=== PATIENT | female | born 1970 | race Caucasian/White ===

== ENCOUNTER 2024-03-05 08:36 | Outpatient (AMB) | payer BC, SELFPAY ==
[2024-03-05 08:41] VITALS: BP 98/52; PULSE 71; RESP 12; O2SAT 95; BMI 28.4
--- NOTE | 2024-03-05 08:41 | A.OFFPC_ITS ---
Vital Signs 03/05/24 08:41 Height 4 ft 10.75 in Weight 139 lb 6 oz BMI 28.4 BP 98/52 L Blood Pressure Location Lt brachial Position Sitting Respiration 12 Pulse 71 Pulse Source Pulse Oximeter Pulse Oximetry (%) 95 Oxygen Delivery Method Room Air Intake Visit Reasons: [facility] Intake Note: Patient is here to transfer care from [facility] to [facility]. Patient reports not be able to sleep through the night, bedtime is between 10 and 12 midnight and waking between 2am-4am, or multiple times throughout the night. Patient reports she has tried melatonin and magnesium and neither have been effective. Patient also notices appetite concern- she is not hungry until 1pm. Investigation Manager Required: No Accompanied by: Self / Same As Patient Allergies No Known Allergies Allergy (Verified 03/05/24 08:48) Tobacco use date assessed: 03/05/24 Dental Screening Dental Screen Date: 03/05/24 Did you have a dental visit in the last 12 months?: Yes Did you have a dental problem in the last 6 months where you did not have access to dental care?: No Was dental information given to patient?: Patient has dentist HPI HPI Comments History of Present Illness Details The patient is a 53-year-old female with a past medical history of hyperlipidemia, migraines, allergic rhinitis presenting for follow-up CV: Hyperlipidemia. She has tried every diet to lose weight and has not been effective. Lifestlye changes, phentermine were ineffective in the past Migraine: headaches are stable. on estrogen, progesterone, testosterone hormone therapy through integrative medicine. At her last visit she reported that even if she eats a small spinal sweets like a cake or cookie note 20 minutes later she breaks out in excessive sweating. It is not accompanied by chest pain, abdominal pain, palpitations. She reported that has been happening for previous year. We discussed postprandial distress syndrome She has a history of nonobstructive bilateral nephrolithiasis. This was performed in 02/27/2024. She follows with [facility] Preventive Colonoscopy 04/20/2021: 2 tubular adenomas Pap 2019 Mammo 07/04/2023 ROS CONSTITUTIONAL: Denies weight loss, fever and chills. HEENT: Denies changes in vision and hearing. RESPIRATORY: Denies SOB and cough. CV: Denies palpitations and CP GI: Denies abdominal pain, nausea, vomiting and diarrhea. : Denies dysuria and urinary frequency. MSK: Denies new myalgia and joint pain. SKIN: Denies rash and pruritus. NEUROLOGICAL: Denies headache PSYCHIATRIC: Denies recent changes in mood. PHYSICAL EXAM: GENERAL: Alert and oriented x 3. NAD EYES: EOMI. Anicteric. HENT: Moist mucous membranes. No scleral icterus. No cervical lymphadenopathy. LUNGS: Clear to auscultation bilaterally. CARDIOVASCULAR: Regular rate and rhythm. No murmur. No JVD. ABDOMEN: Soft, non-tender +bs EXTREMITIES: No edema. Non-tender. SKIN: No rashes or lesions. Warm. NEUROLOGIC: No focal neurological deficits. CN II-XII grossly intact PSYCHIATRIC: Cooperative. Appropriate mood and affect [facility] Medical History (Updated 03/05/24 @ 09:18 by Shayy Washburn MD) Vitamin D deficiency Tubular adenoma of colon Migraine Microscopic hematuria Kidney stone Hypercholesterolemia Hearing loss Allergic rhinitis Surgical History (Updated 03/05/24 @ 08:37 by Micheline Cardozo CMA) History of cholecystectomy Family History (Updated 03/05/24 @ 08:55 by Micheline Cardozo CMA) Mother Hypercholesterolemia Father Bladder cancer Social History (Updated 03/05/24 @ 08:56 by Micheline Cardozo CMA) Household Members: Spouse and Children Housing: House Are you a primary landcare facilitator to a significant other at home: No Do you presently have visiting nurse or other home services: No 75 years or older and lives alone: No Alcohol intake: current Alcohol intake frequency: a few times a week Patient Tobacco Use Status: Never used Tobacco e-Cigarette/Vaping Use: Never Used service: No Current occupational status: employed 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 Cognitive needs: No Hearing needs: No Vision needs: No Questionnaire PHQ-9 Over the last 2 weeks, how often have you been bothered by any of the following problems? 1. Little interest or pleasure in doing things: not at all 2. Feeling down, depressed, or hopeless: not at all 3. Trouble falling or staying asleep, or sleeping too much: several days 4. Feeling tired or having little energy: several days 5. Poor appetite or overeating: several days 6. Feeling bad about yourself - or that you are a failure or have let yourself or your family down: not at all 7. Trouble concentrating on things, such as reading the newspaper or watching television: not at all 8. Moving or speaking so slowly that other people could have noticed. Or the opposite - being so fidgety or restless that you have been moving around a lot more than usual: not at all 9. Thoughts that you would be better off or of hurting yourself in some way: not at all Total score: 3 Depression Screening Interpretation: Negative (neg) Depression Screening Done: Yes 60314 - PHQ-9 Billing: Yes Source: Developed by Drs. Elie Soto, Disha De Leon, John Lorenzo and colleagues, with an educational mildred from [employer]. Thrive Questionnaire Date Thrive assessed: 03/05/24 I am a: Patient What is your living situation today?: I have a steady place to live Within the past 12 months, did the food you bought not last and you didn't have the money to get more?: Never true Within the past 12 months, did you worry whether your food would run out before you got money to buy more?: Never true Do you have trouble paying for medicines?: No Do you have trouble getting transportation to medical appointments?: No Do you have trouble paying your heating and electricity bill?: No Do you have trouble taking care of your child, family member or friend?: No Do you have trouble with day-to-day activities such as bathing, preparing meals, shopping, managing finances, etc.?: No Are you currently unemployed and looking for a job?: No Are you interested in more education?: No Please select the resources that you would like help with: None Currently or been in a relationship where the following occur: No concerns reported THRIVE Score: 0 AUDIT C Alcohol Use Questionnaire (AUDIT-C) 1. How often do you have a drink containing alcohol?: 2-4 times a month 2. How many drinks containing alcohol do you have on a typical day when you are drinking?: 1 or 2 3. How often do you have six or more drinks on one occasion?: Never Total Score: 2 PARISA-7 AMB Questionnaire PARISA-7 Date PARISA - 7 assessed: 03/05/24 Feeling nervous, anxious, or on edge: 0 = Not at all Not being able to stop or control worryin = Not at all Worrying too much about different things: 0 = Not at all Trouble relaxin = Not at all Being so restless that it is hard to sit still: 0 = Not at all Becoming easily annoyed or irritable: 0 = Not at all Feeling afraid as if something awful might happen: 0 = Not at all Total PARISA-7 score (0-4 normal; 5-9 mild; 10-14 moderate; 15-21 severe): 0 Source: Developed by Drs. Elie Soto, Disha De Leon, John Lorenzo and colleagues, with an educational mildred from [employer]. PARISA-7 Assessment Billing PARISA-7 Assessment Tool: PARISA-7 Assessment 25835 Physical exam (Primary Care) Vital Signs: Last Vital Signs Pulse 71 03/05/24 08:41 Resp 12 03/05/24 08:41 BP 98/52 L 03/05/24 08:41 Pulse Ox 95 03/05/24 08:41 Oxygen Delivery Method Room Air 03/05/24 08:41 BMI result Body Mass Index 28.4 Tobacco/Smoking Status: Tobacco use Status Tobacco use date assessed 03/05/24 03/05/24 08:53 Patient Tobacco Use Status Never used Tobacco 03/05/24 08:56 e-Cigarette/Vaping Use Never Used 03/05/24 08:56 PHQ-9: PHQ-9 Score PHQ-9: Total score 3 03/05/24 09:10 Depression Screening Interpretation: Negative (neg) Thrive Assessment: Date of Thrive Assessment Date Thrive assessed 03/05/24 03/05/24 08:53 Currently or been in a relationship where the following occur: No concerns reported Assessment and Plan Assessment & Plan (1) Migraine: Code(s): G43.909 - Migraine, unspecified, not intractable, without status migrainosus Qualifiers: Intractability: not intractable Migraine type: unspecified Status migrainosus presence: without status migrainosus Qualified Code(s): G43.909 - Migraine, unspecified, not intractable, without status migrainosus Plan: stable on imitrex (2) Vitamin D deficiency: Code(s): E55.9 - Vitamin D deficiency, unspecified Plan: has been intermittently been taking her supplement (3) Weight gain: Code(s): R63.5 - Abnormal weight gain Plan: wegovy ordered. Orders: Orders Comprehensive Met. Panel Today E55.9 - Vitamin D deficiency, unspecified, E78.00 - Pure hypercholesterolemia, unspecified, G43.909 - Migraine, unspecified, not intractable, without status migrainosus Lipid Panel Today E55.9 - Vitamin D deficiency, unspecified, E78.00 - Pure h ypercholesterolemia, unspecified, G43.909 - Migraine, unspecified, not intractable, without status migrainosus Vitamin D 25-OH (D2 and D3) Today E55.9 - Vitamin D deficiency, unspecified, E78.00 - Pure hypercholesterolemia, unspecified, G43.909 - Migraine, unspecified, not intractable, without status migrainosus TSH reflex Free T4 Today E55.9 - Vitamin D deficiency, unspecified, E78.00 - Pure hypercholesterolemia, unspecified, G43.909 - Migraine, unspecified, not intractable, without status migrainosus Thyroid Peroxidase Antibodies Today E55.9 - Vitamin D deficiency, unspecified, E78.00 - Pure hypercholesterolemia, unspecified, G43.909 - Migraine, unspecified, not intractable, without status migrainosus Complete Blood Count Auto Diff Today E55.9 - Vitamin D deficiency, unspecified, E78.00 - Pure hypercholesterolemia, unspecified, G43.909 - Migraine, unspecified, not intractable, without status migrainosus Medications: New cholecalciferol (vitamin D3) 50 mcg PO DAILY 90 caps 2RF Wegovy (semaglutide (weight loss)) administer weeks 1 through 4 of therapy 0.25 mg (0.5 mL) subcut QWEEK 2 mL 3RF NS E55.9 - Vitamin D deficiency, unspecified, E78.00 - Pure hypercholesterolemia, unspecified, G43.909 - Migraine, unspecified, not intractable, without status migrainosus sumatriptan succinate do not exceed 8 doses per 24 hrs 25 mg PO Q2-4H PRN 90 tabs 2RF migraine headache trazodone 50 - 100 mg (1 - 2 x 50 mg) PO BEDTIME PRN 60 tabs 3RF sleep Coding Level of Care Code Est Pt Level 5 (48592) Diagnoses Migraine without status migrainosus, not intractable, unspecified migraine type G43.909 Intractability: not intractable Migraine type: unspecified Status migrainosus presence: without status migrainosus Vitamin D deficiency E55.9 Weight gain R63.5 Additional Codes PARISA-7 Assessment Billing - PARISA-7 Assessment Tool: APRISA-7 Assessment [id number] ([id number]) Time Spent (min) 42
== END 2024-03-05 09:18 | disposition home or self-care (01) ==
PROVIDERS: Visit Provider Internal Medicine
DX: G43.909 Migraine, unspecified, not intractable, without status migrainosus (principal); E55.9 Vitamin D deficiency, unspecified; R63.5 Abnormal weight gain

== ENCOUNTER → 2024-03-05 08:36 | Outpatient (BNVA) | payer BC, SELFPAY | PROVIDERS: Visit Provider Internal Medicine | DX: G43.909 Migraine, unspecified, not intractable, without status migrainosus (principal); E55.9 Vitamin D deficiency, unspecified; R63.5 Abnormal weight gain | CPT/HCPCS: 96127 ==

== ENCOUNTER 2024-03-05 09:35 | Outpatient (REF) | payer BC, SELFPAY ==
[2024-03-05 11:11] LABS: MANUAL DIFF FLAG NO
[2024-03-05 11:16] LABS: Basophils Percent Auto 0.7 % (0-2); Eosinophils Absolute Auto 0.2 X10*3/uL (0.0-0.4); Eosinophils Percent Auto 2.8 % (0-4); Hematocrit 43.8 % (37.0-47.0); Hemoglobin 14.7 g/dl (12.0-16.0); Imm Gran Abs Auto 0.03 X10*3/uL (0.00-0.03); Imm Gran Pct Auto 0.5 % (0.0-0.4); Lymphocytes Absolute Auto 1.9 X10*3/uL (1.2-4.9); Lymphocytes Percent Auto 34.2 % (20-40); Mean Corpuscular HGB Conc 33.6 g/dl (31.0-35.0); Mean Corpuscular Hemoglobin 31.1 pg (27.0-33.0); Mean Corpuscular Volume 92.8 fL (80.0-98.0); Monocytes Absolute Auto 0.4 X10*3/uL (0.1-1.2); Monocytes Percent Auto 7.4 % (2-11); Neutrophils Absolute Auto 3.1 x10*3/uL (2.0-8.3); Neutrophils Percent Auto 54.4 % (45-73); Platelet Count 357 X10*3/uL (160-400); Red Blood Count 4.72 X10*6/uL (4.20-5.50); Red Cell Distribution Width 13.1 % (11.0-16.0); White Blood Count 5.6 X10*3/uL (4.8-10.8)
[2024-03-05 12:01] LABS: Alanine Aminotransferase 46 U/L (0-31); Albumin Level 4.3 g/dL (3.5-5.0); Alkaline Phosphatase 125 U/L (39-117); Anion Gap 10 (12-20); Aspartate Amino Transferase 22 U/L (5-31); Bilirubin Total 0.4 mg/dL (0.0-1.0); Blood Urea Nitrogen 22 mg/dL (9-16); Calcium 9.9 mg/dL (8.4-10.2); Carbon Dioxide 29 mmol/L (22-29); Chloride 107 mmol/L (96-108); Cholesterol 269 mg/dL (<200); Estimated Glomerular Filt Rate > 60; Glucose Random 99 mg/dL (60-115); HDL Cholesterol 70 mg/dL (>40); LDL Cholesterol Calculated 189 mg/dL (<100); Potassium 4.4 mmol/L (3.3-5.1); Sodium 142 mmol/L (135-145); Total Protein 7.5 g/dL (6.5-8.0); Triglycerides 54 mg/dL (<150)
[2024-03-05 12:07] LABS: TSH reflex Free T4 1.26 uIU/mL (0.32-4.0)
[2024-03-09 09:44] LABS: Thyroid Peroxidase Antibodies <1 IU/mL (<9)
[2024-03-10 13:44] LABS: Vitamin D 25-OH, D2 <4 ng/mL; Vitamin D 25-OH, D3 37 ng/mL; Vitamin D 25-OH, Total 37 ng/mL (30-100)
== END 2024-03-05 09:36 | disposition home or self-care (01) ==
LOC: HO.WFDLDS 09:35
PROVIDERS: Visit Provider Internal Medicine
DX: E55.9 Vitamin D deficiency, unspecified (principal); E78.00 Pure hypercholesterolemia, unspecified; G43.909 Migraine, unspecified, not intractable, without status migrainosus
CPT/HCPCS: 36415; 80053; 80061; 82306; 84443; 85025; 86376

== ENCOUNTER 2024-03-30 13:51 | Outpatient (AMB) | payer BC, SELFPAY ==
--- NOTE | 2024-03-30 13:53 | A.OFFVIS_ITS ---
Intake Visit Reasons: Abdominal pain Allergies No Known Allergies Allergy (Verified 03/05/24 08:48) PFSH Medical History (Updated 03/05/24 @ 09:18 by Shayy Washburn MD) Vitamin D deficiency Tubular adenoma of colon Migraine Microscopic hematuria Kidney stone Hypercholesterolemia Hearing loss Allergic rhinitis Surgical History (Updated 03/05/24 @ 08:37 by Micheline Cardozo CMA) History of cholecystectomy Family History (Updated 03/05/24 @ 08:55 by Micheline Cardozo CMA) Mother Hypercholesterolemia Father Bladder cancer Social History (Updated 03/05/24 @ 08:56 by Micheline Cardozo CMA) Household Members: Spouse and Children Housing: House Are you a primary infant caregiver to a significant other at home: No Do you presently have visiting nurse or other home services: No 75 years or older and lives alone: No Alcohol intake: current Alcohol intake frequency: a few times a week Patient Tobacco Use Status: Never used Tobacco e-Cigarette/Vaping Use: Never Used service: No Current occupational status: employed 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 Cognitive needs: No Hearing needs: No Vision needs: No Coding
--- NOTE | 2024-03-30 13:56 | MHC.PC.OV ---
Vital Signs 03/30/24 13:58 Height 4 ft 10 in Weight 141 lb 2 oz BMI 29.5 BP 112/74 Blood Pressure Location Rt brachial Position Sitting Pulse 78 Pulse Source Pulse Oximeter Temp 98.1 F Temp Source Oral Pulse Oximetry (%) 99 Oxygen Delivery Method Room Air Intake Visit Reasons: Abdominal pain Intake Note: Abdominal pain for about a week. Has hx of kidney stones, but the pain feels different. Allergies No Known Allergies Allergy (Verified 03/05/24 08:48) Tobacco use date assessed: 03/05/24 Dental Screening Dental Screen Date: 03/05/24 HPI HPI Comments History of Present Illness Details The patient is a 53-year-old female with a past medical history of hyperlipidemia, migraines, allergic rhinitis presenting for acute abdominal pain Patient reports that for the past week she has had generalized abdominal pain, worst in the upper mid RLQ. She has had considerable pain, bloating, loose stools and intermittent pebbly stools. She originally thought it could be a kidney stone but symptoms are different and more severe. Denies fevers. Denies vomiting. Denies blood in the stools. No visible blood in the urine. Microscopic blood on dip but chronic CV: Hyperlipidemia. She has tried every diet to lose weight and has not been effective. Lifestlye changes, phentermine were ineffective in the past Migraine: headaches are stable. on estrogen, progesterone, testosterone hormone therapy through integrative medicine. At her last visit she reported that even if she eats a small spinal sweets like a cake or cookie note 20 minutes later she breaks out in excessive sweating. It is not accompanied by chest pain, abdominal pain, palpitations. She reported that has been happening for previous year. We discussed postprandial distress syndrome She has a history of nonobstructive bilateral nephrolithiasis. This was performed in 02/27/2024. She follows with [facility]rology Preventive Colonoscopy 04/20/2021: 2 tubular adenomas Pap 2019 Mammo 07/04/2023 ROS CONSTITUTIONAL: Denies weight loss, fever and chills. HEENT: Denies changes in vision and hearing. RESPIRATORY: Denies SOB and cough. CV: Denies palpitations and CP GI: Denies abdominal pain, nausea, vomiting and diarrhea. : Denies dysuria and urinary frequency. MSK: Denies new myalgia and joint pain. SKIN: Denies rash and pruritus. NEUROLOGICAL: Denies headache PSYCHIATRIC: Denies recent changes in mood. PHYSICAL EXAM: GENERAL: Alert and oriented x 3. Visibly uncomfortable EYES: EOMI. Anicteric. HENT: Moist mucous membranes. No scleral icterus. No cervical lymphadenopathy. LUNGS: Clear to auscultation bilaterally. CARDIOVASCULAR: Regular rate and rhythm. No murmur. No JVD. ABDOMEN: Distended, tender to palpation especially upper mid RLQ. No rebound or rigidity. +bs EXTREMITIES: No edema. Non-tender. SKIN: No rashes or lesions. Warm. NEUROLOGIC: No focal neurological deficits. CN II-XII grossly intact PSYCHIATRIC: Cooperative. Appropriate mood and affect [facility] Medical History (Updated 03/31/24 @ 15:22 by Shayy Washburn MD) Vitamin D deficiency Tubular adenoma of colon Migraine Microscopic hematuria Kidney stone Hypercholesterolemia Hearing loss Allergic rhinitis Surgical History (Updated 03/05/24 @ 08:37 by Micheline Cardozo CMA) History of cholecystectomy Family History (Updated 03/05/24 @ 08:55 by Micheline Cardozo CMA) Mother Hypercholesterolemia Father Bladder cancer Social History (Updated 03/05/24 @ 08:56 by Micheline Cardozo CMA) Household Members: Spouse and Children Housing: House Are you a primary infant childcare provider to a significant other at home: No Do you presently have visiting nurse or other home services: No Alcohol intake: current Alcohol intake frequency: a few times a week Patient Tobacco Use Status: Never used Tobacco e-Cigarette/Vaping Use: Never Used service: No Current occupational status: employed 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 Cognitive needs: No Hearing needs: No Vision needs: No Questionnaire Thrive Questionnaire Date Thrive assessed: 03/05/24 I am a: Patient What is your living situation today?: I have a steady place to live Within the past 12 months, did the food you bought not last and you didn't have the money to get more?: Never true Within the past 12 months, did you worry whether your food would run out before you got money to buy more?: Never true Do you have trouble paying for medicines?: No Do you have trouble getting transportation to medical appointments?: No Do you have trouble paying your heating and electricity bill?: No Do you have trouble taking care of your child, family member or friend?: No Do you have trouble with day-to-day activities such as bathing, preparing meals, shopping, managing finances, etc.?: No Are you currently unemployed and looking for a job?: No Are you interested in more education?: No Please select the resources that you would like help with: None Currently or been in a relationship where the following occur: No concerns reported THRIVE Score: 0 PARISA-7 AMB Questionnaire PARISA-7 Date PRAISA - 7 assessed: 03/05/24 Becoming easily annoyed or irritable: 0 = Not at all Source: Developed by Drs. Elie Soto, Disha De Leon, John Lorenzo and colleagues, with an educational mildred from [employer]. Physical exam (Primary Care) Vital Signs: Last Vital Signs Temp 98.1 F 03/30/24 13:58 Pulse 78 03/30/24 13:58 BP 112/74 03/30/24 13:58 Pulse Ox 99 03/30/24 13:58 Oxygen Delivery Method Room Air 03/30/24 13:58 BMI result Body Mass Index 29.5 Tobacco/Smoking Status: Tobacco use Status Tobacco use date assessed 03/05/24 03/30/24 14:01 Patient Tobacco Use Status Never used Tobacco 03/30/24 14:01 e-Cigarette/Vaping Use Never Used 03/30/24 14:01 Thrive Assessment: Date of Thrive Assessment Date Thrive assessed 03/05/24 03/30/24 14:01 Currently or been in a relationship where the following occur: No concerns reported Coding Level of Care Code Est Pt Level 4 (84868) Complex EM visit Add On G2211 Diagnoses Right lower quadrant pain R10.31 History of nephrolithiasis Z87.442 Abdominal pain, unspecified abdominal location R10.9 Abdominal location: unspecified location Assessment & Plan Assessment & Plan (1) Right lower quadrant pain: Code(s): R10.31 - Right lower quadrant pain Category: Medical Plan: Discussed differential including but not limited to appendicitis, gastroenteritis etc. Abdominal u/s urgent ordered. CT ordered. Hold off medications. Labs ordered. If pain persists/worsens and imaging is delayed she will go to the ER for evaluation (2) History of nephrolithiasis: Code(s): Z87.442 - Personal history of urinary calculi Category: Medical Plan: see above (3) Abdominal pain: Code(s): R10.9 - Unspecified abdominal pain Category: Medical Qualifiers: Abdominal location: unspecified location Qualified Code(s): R10.9 - Unspecified abdominal pain Plan: RLQ, periumbilical and generalized Orders: Orders US abdomen complete 03/30/24 R10.9 - Unspecified abdominal pain, Z87.442 - Personal history of urinary calculi Amylase 03/30/24 R10.9 - Unspecified abdominal pain, Z87.442 - Personal history of urinary calculi Comprehensive Met. Panel 03/30/24 R10.31 - Right lower quadrant pain, R10.9 - Unspecified abdominal pain, Z87.442 - Personal history of urinary calculi Complete Blood Count Auto Diff 03/30/24 R10.9 - Unspecified abdominal pain, Z87.442 - Personal history of urinary calculi Erythrocyte Sedimentation Rate 03/30/24 R10.9 - Unspecified abdominal pain, Z87.442 - Personal history of urinary calculi CT abdomen pelvis wo/w IV con 03/30/24 R10.9 - Unspecified abdominal pain, Z87.442 - Personal history of urinary calculi
[2024-03-30 13:58] VITALS: BP 112/74; PULSE 78; TEMP 36.7; O2SAT 99; BMI 29.5
== END 2024-03-30 14:55 | disposition home or self-care (01) ==
PROVIDERS: Visit Provider Internal Medicine
DX: R10.31 Right lower quadrant pain (principal); Z87.442 Personal history of urinary calculi; R10.9 Unspecified abdominal pain

== ENCOUNTER → 2024-03-30 13:51 | Outpatient (BNVA) | payer BC, SELFPAY | PROVIDERS: Visit Provider Internal Medicine ==

== ENCOUNTER 2024-03-30 14:49 | Outpatient (REF) | payer BC, SELFPAY ==
[2024-03-30 17:44] LABS: MANUAL DIFF FLAG NO
[2024-03-30 17:59] LABS: Basophils Absolute Auto 0.1 X10*3/uL (0.0-0.2); Basophils Percent Auto 0.9 % (0-2); Eosinophils Absolute Auto 0.1 X10*3/uL (0.0-0.4); Eosinophils Percent Auto 1.2 % (0-4); Hematocrit 42.4 % (37.0-47.0); Hemoglobin 14.2 g/dl (12.0-16.0); Imm Gran Abs Auto 0.02 X10*3/uL (0.00-0.03); Imm Gran Pct Auto 0.3 % (0.0-0.4); Lymphocytes Absolute Auto 1.6 X10*3/uL (1.2-4.9); Lymphocytes Percent Auto 20.6 % (20-40); Mean Corpuscular HGB Conc 33.5 g/dl (31.0-35.0); Mean Corpuscular Hemoglobin 31.1 pg (27.0-33.0); Mean Corpuscular Volume 92.8 fL (80.0-98.0); Mean Platelet Volume 10.4 fL (9.4-12.3); Monocytes Absolute Auto 0.5 X10*3/uL (0.1-1.2); Monocytes Percent Auto 6.1 % (2-11); Neutrophils Absolute Auto 5.6 x10*3/uL (2.0-8.3); Neutrophils Percent Auto 70.9 % (45-73); Platelet Count 320 X10*3/uL (160-400); Red Blood Count 4.57 X10*6/uL (4.20-5.50); Red Cell Distribution Width 13.5 % (11.0-16.0); White Blood Count 7.8 X10*3/uL (4.8-10.8)
[2024-03-30 18:25] LABS: Alanine Aminotransferase 39 U/L (0-31); Albumin Level 4.4 g/dL (3.5-5.0); Alkaline Phosphatase 88 U/L (39-117); Amylase 50 U/L (28-100); Anion Gap 10 (12-20); Aspartate Amino Transferase 28 U/L (5-31); Bilirubin Total 0.4 mg/dL (0.0-1.0); Blood Urea Nitrogen 17 mg/dL (9-16); Calcium 9.8 mg/dL (8.4-10.2); Carbon Dioxide 28 mmol/L (22-29); Chloride 107 mmol/L (96-108); Estimated Glomerular Filt Rate > 60; Glucose Random 89 mg/dL (60-115); Potassium 4.4 mmol/L (3.3-5.1); Sodium 141 mmol/L (135-145); Total Protein 7.4 g/dL (6.5-8.0)
[2024-03-30 18:46] LABS: Erythrocyte Sedimentation Rate 7 MM/HR (0-20)
== END 2024-03-30 14:50 | disposition home or self-care (01) ==
LOC: HO.WFDLDS 14:49
PROVIDERS: Visit Provider Internal Medicine
DX: Z87.442 Personal history of urinary calculi (principal); R10.9 Unspecified abdominal pain; R10.31 Right lower quadrant pain
CPT/HCPCS: 36415; 80053; 82150; 85025; 85652

== ENCOUNTER 2024-04-07 08:53 | Outpatient (REF) | payer BC, SELFPAY ==
--- NOTE | ~2024-04-07 | US_ITS ---
EXAMINATION: US ABDOMEN COMPLETE CLINICAL INFORMATION: Unspecified abdominal pain. COMPARISON: None available. TECHNIQUE: Real-time imaging of the abdominal viscera. Limited visualization due to bowel gas. FINDINGS: PANCREAS: Limited visualization of pancreatic tail and head. Imaged portion of pancreatic body is unremarkable. ABDOMINAL AORTA: Limited visualization of the abdominal aorta. Imaged portions of the abdominal aorta are within normal limits in caliber. INFERIOR VENA CAVA: Visualized portions are normal. LIVER: Liver is normal in size with smooth hepatic contour. Borderline mildly increased hepatic parenchymal heterogeneity and echogenicity could be associated with hepatocellular disease/hepatic steatosis and substantially limits visualization. Correlation with liver function tests and clinical exam recommended to determine further management. GALLBLADDER: Gallbladder surgically absent. COMMON BILE DUCT: Normal in caliber measuring 0.4 cm in diameter. RIGHT KIDNEY: No hydronephrosis. Multiple renal calculi measuring 3 mm lower pole, and at least 3 calculi lower pole measuring 2 mm each. Limited visualization.The kidney measures 10.0 cm in maximum dimension. LEFT KIDNEY: No hydronephrosis. Multiple renal calculi measuring 4 mm upper pole, 4 mm upper pole, 3 mm upper pole and 2 mm lower pole. Limited visualization. The kidney measures 10.1 cm in maximum dimension. SPLEEN: Limited visualization The spleen measures 7.7 cm in maximum dimension. FREE FLUID: None. US/US abdomen complete IMPRESSION: 1. Borderline mildly increased hepatic parenchymal heterogeneity and echogenicity could be associated with hepatocellular disease/hepatic steatosis and substantially limits visualization. Correlation with liver function tests and clinical exam recommended to determine further management. 2. Multiple bilateral renal calculi. No hydronephrosis. This study was presented today April 07, 2024 for interpretation. Stat results provided at this time as requested by referring provider. Electronically signed by: Renate Barton MD 04/07/2024 11:29 AM EDT
== END 2024-04-07 08:54 | disposition home or self-care (01) ==
LOC: HO.US 08:53
PROVIDERS: PCP Internal Medicine; Visit Provider Internal Medicine
DX: R10.9 Unspecified abdominal pain (principal); Z87.442 Personal history of urinary calculi
CPT/HCPCS: 76700

== ENCOUNTER 2024-04-23 07:10 | Outpatient (REF) | payer BC, SELFPAY ==
--- NOTE | ~2024-04-23 | CT_ITS ---
EXAMINATION: CT ABDOMEN AND PELVIS WITH CONTRAST CLINICAL INFORMATION: Right lower quadrant abdominal pain. COMPARISON: Abdominal ultrasound dated 03/11/2024. TECHNIQUE: Multidetector volumetric images were obtained from the superior aspect of the liver through the pubic symphysis following administration 85 mL of Omnipaque 350 intravenous contrast. Sagittal and coronal reformatted images were obtained on the technologist's workstation. Oral contrast: Yes This CT examination was performed using dose optimization techniques as appropriate, variously including the following: *Automated exposure control *Adjustment of mA and/or kV according to patient size (this includes techniques or standardized protocols for targeted exams where dose is matched to indication/reason for exam; i.e. extremities or head) *Use of iterative reconstruction technique DLP: 340 mGy-cm FINDINGS: LUNG BASES: The visualized lung bases are unremarkable. LIVER, GALLBLADDER, AND BILIARY TREE: The liver is normal in size, shape, and attenuation. No focal hepatic lesion or biliary ductal dilatation is present. Status post cholecystectomy. PANCREAS: Unremarkable. SPLEEN: Unremarkable. ADRENAL GLANDS: Unremarkable. KIDNEYS AND URETERS: The kidneys are normal in size, shape, and attenuation. Simple left renal cyst. Findings are not clinically significant and no dedicated follow-up imaging is recommended. Multiple 0.2 cm right-sided renal stones. Multiple left-sided renal stones with the largest in the upper pole measuring up to 0.9 x 0.6 cm and approximately 610 Hounsfield units. The stone is located 6.5 cm from a posterior axillary line. No ureteral stone. No hydronephrosis or hydroureter. Multiple pelvic phleboliths. No perinephric stranding. BLADDER: Partially distended and unremarkable. No associated calcification. GASTROINTESTINAL TRACT: Oral contrast reaches the rectum. No small or large bowel obstruction. No bowel wall thickening or inflammatory change. Unremarkable appendix. PERITONEAL CAVITY: No intra-abdominal free air or free fluid. No intra-abdominal mass or organized fluid collection/abscess formation. ABDOMINAL WALL: Small, fat-containing periumbilical hernia. LYMPH NODES: No lymphadenopathy. VASCULAR: Unremarkable. PELVIC VISCERA: The uterus and adnexa are unremarkable. OSSEOUS STRUCTURES: Unremarkable. CT/CT abdomen pelvis w IV con IMPRESSION: 1. Multiple bilateral renal stones with the largest in the upper pole of the left kidney measuring up to 0.9 cm. No ureteral stone. No hydronephrosis or hydroureter. Unremarkable urinary bladder. 2. No small or large bowel obstruction. No bowel wall thickening or inflammatory change. Unremarkable appendix. 3. No intra-abdominal mass, lymphadenopathy, or ascites. Fleischner guidelines were followed. Electronically signed by: Valente Gongora MD 04/23/2024 12:52 PM [facility]
[2024-04-23] MEDS: iohexoL 350 MG/ML 100 ML INFUS..BTL IV (10:02)
[2024-04-23] MEDS: Barium Sulfate Oral (Vanilla) 450 ML ORAL.SUSP PO ×2 (10:03)
== END 2024-04-23 07:11 | disposition home or self-care (01) ==
LOC: HO.CT 07:10
PROVIDERS: Visit Provider Internal Medicine
DX: R10.31 Right lower quadrant pain (principal); Z87.442 Personal history of urinary calculi
CPT/HCPCS: 74177; Q9967

== ENCOUNTER 2024-06-11 09:22 | Outpatient (AMB) | payer BC, SELFPAY ==
--- NOTE | 2024-06-11 09:23 | AM.OFFWIN_ITS ---
Intake Vital Signs 06/11/24 09:27 Height 4 ft 10 in Weight 146 lb 6 oz BMI 30.6 BP 118/68 Blood Pressure Location Lt brachial Position Sitting Respiration 12 Pulse 78 Pulse Source Pulse Oximeter Pulse Oximetry (%) 93 Oxygen Delivery Method Room Air Intake Visit Reasons: Sinus infection Intake Note: Patient complaining of coughing up phlegm x 1 week Patient Tobacco Use Status: Never used Tobacco Coordinator Of Online Programs Required: No Allergies No Known Allergies Allergy (Verified 06/11/24 09:43) Medication List - Last Reconciled 06/11/24 by Terra Morris, [facility]- cholecalciferol (vitamin D3) 50 mcg PO DAILY [Misc 0.5 grams topical .twice daily 90 days] sumatriptan succinate 25 mg PO Q2-4H PRN trazodone 50 - 100 mg (1 - 2 x 50 mg) PO BEDTIME PRN Wegovy (semaglutide (weight loss)) 0.25 mg (0.5 mL) subcut QWEEK NS Wegovy (semaglutide (weight loss)) 0.5 mg (0.5 mL) subcut QWEEK NS Do you need a note to return to daycare/school/sports/work: No HPI HPI Comments History of Present Illness Details History of Present Illness The patient is a 53-year-old female presenting with a persistent cough and sinus congestion for the past week. Initially, the cough was described as very dry but subsequently progressed to produce green and yellow sputum, suggesting possible infection. The patient denies any history of smoking, asthma, or chronic obstructive pulmonary disease but reports taking Aleve to alleviate pressure, primarily perceived in the facial region. She has also attempted cold compress applications and the use of Exonex nasal spray without significant relief. Additionally, the patient has noted unexpected weight gain, attributed to fluid retention over the past week, which is unusual as it occurred outside of typical holiday indulgences. There have been no recent dietary excesses that could account for this change. The patient has no known drug allergies and has previously tolerated azithromycin. The patient self-reports sinus congestion primarily affecting the left ear, with a mild gag reflex triggered by Q-tip use in this ear specifically. Exam: Awake alert NAD Sclera and conjunctiva clear bilat Nares patent, turbinates within normal limits, no sinus tenderness with palpation bilat TM intact and clear right, congested on Left MMM, pharynx + PND RRR LS CTAB, cough noted w/o distress, faint exp wheeze LLL Plan - Initiated antibiotic therapy with azit hromycin Z-Dimas) for five days to address bronchitis and possible bacterial sinus infection. - Prescribed a pill form cough suppressa nt to be taken three times a day as needed for cough management. - Advised monitoring of fluid retention and discussed potential medication- related causes for this symptom. - Recommended follow-up visit if symptom s persist or worsen, with the option of telehealth consultation due to travel plans. Patient was informed and verbally consented to the use of an ambient scribe for clinic note documentation during this visit. Discussion Notes I discussed with the patient the likelihood of an acute bacterial infection contributing to her symptoms. Given the presence of green and yellow sputum, as well as sinus congestion, azithromycin was prescribed. The expected course of the antibiotic, including initial improvement within a few days but potential lingering cough for a few weeks, was explained. I advised on the adjunctive use of a cough suppressant and addressed concerns regarding fluid retention, likely exacerbated by current medications. The patient was informed of potential follow-up via telehealth during her stay in [place], stressing the importance of contacting us if symptoms do not improve or deteriorate. Patient Instructions - Begin azithromycin as directed: two ta blets on day one, followed by one tablet daily for the next four days. - Use cough suppressant as needed, up to three times daily. - Monitor any changes in fluid retention and diet. - Seek immediate care if symptoms worsen or do not improve within a few days. - Arrange a follow-up appointment via critical access hospital if necessary during your trip to [place]. [facility] Medical History (Updated 03/31/24 @ 15:22 by Shayy Washburn MD) Vitamin D deficiency Tubular adenoma of colon Migraine Microscopic hematuria Kidney stone Hypercholesterolemia Hearing loss Allergic rhinitis Surgical History (Updated 03/05/24 @ 08:37 by Micheline Cardozo CMA) History of cholecystectomy Family History (Updated 03/05/24 @ 08:55 by Micheline Cardozo CMA) Mother Hypercholesterolemia Father Bladder cancer Social History (Updated 03/05/24 @ 08:56 by Micheline Cardozo CMA) Household Members: Spouse and Children Housing: House Are you a primary healthcare management to a significant other at home: No Do you presently have visiting nurse or other home services: No 75 years or older and lives alone: No Alcohol intake: current Alcohol intake frequency: a few times a week Patient Tobacco Use Status: Never used Tobacco e-Cigarette/Vaping Use: Never Used service: No Current occupational status: employed 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 Cognitive needs: No Hearing needs: No Vision needs: No Physical Exam Vital Signs: Last Vital Signs Pulse 78 06/11/24 09:27 Resp 12 06/11/24 09:27 BP 118/68 06/11/24 09:27 Pulse Ox 93 06/11/24 09:27 Oxygen Delivery Method Room Air 06/11/24 09:27 BMI result Body Mass Index 30.6 Assessment & Plan Assessment & Plan (1) Acute bacterial bronchitis: Code(s): J20.8 - Acute bronchitis due to other specified organisms; B96.89 - Other specified bacterial agents as the cause of diseases classified elsewhere Plan -.- Medications: New azithromycin For 250 mg dose pack: take 500 mg today (day 1), then 250 mg for 4 days (days 2-5) PO 5 days 6 tabs 0RF benzonatate 100 mg PO TID 10 days PRN 30 caps 1RF cough Coding Level of Care Code Est Pt Level 3 (69338) Diagnoses Acute bacterial bronchitis J20.8; B96.89
[2024-06-11 09:27] VITALS: BP 118/68; PULSE 78; RESP 12; O2SAT 93; BMI 30.6
== END 2024-06-11 09:55 | disposition home or self-care (01) ==
PROVIDERS: PCP Internal Medicine; Visit Provider Nurse Practitioner Family
DX: J20.8 Acute bronchitis due to other specified organisms (principal); B96.89 Other specified bacterial agents as the cause of diseases classified elsewhere

== ENCOUNTER → 2024-06-11 09:22 | Outpatient (BNVA) | payer BC, SELFPAY | PROVIDERS: PCP Internal Medicine ==

== ENCOUNTER 2024-09-30 10:14 | Outpatient (AMB) | payer BC, SELFPAY ==
--- NOTE | 2024-09-30 10:26 | A.OFFPC_ITS ---
Vital Signs 09/30/24 10:41 BP 96/62 Blood Pressure Location Lt brachial Position Sitting Pulse 77 Pulse Source Pulse Oximeter Pulse Oximetry (%) 96 Oxygen Delivery Method Room Air Intake Visit Reasons: cpe (osheas pt plz keep) Intake Note: Physical. Requesting prescription for Wegovy 1mg and Beist progesterone DHEA testosterone to be printed to fax to [facility]. Rx is on Dr Abrams desk, is asking if it can be taken care of today. Emergency Management Director Required: No Allergies No Known Allergies Allergy (Verified 09/30/24 10:27) Medication List - Last Reconciled 09/30/24 by Chula Mckenzie PA-C cholecalciferol (vitamin D3) 50 mcg PO DAILY [Misc 0.5 grams topical .twice daily 90 days] sumatriptan succinate 25 mg PO Q2-4H PRN trazodone 50 - 100 mg (1 - 2 x 50 mg) PO BEDTIME PRN Wegovy (semaglutide (weight loss)) 1 mg (0.5 mL) subcut Q7D NS Tobacco use date assessed: 09/30/24 Dental Screening Dental Screen Date: 09/30/24 Did you have a dental visit in the last 12 months?: Yes Did you have a dental problem in the last 6 months where you did not have access to dental care?: No Was dental information given to patient?: Patient has dentist HPI cpe (osheas pt plz keep) HPI Details The patient is a 53-year-old female with a past medical history of hyperlipidemia, kidney stones, migraines, allergic rhinitis presenting for a cpe CV: has hyperlipidemia. She has tried every diet to lose weight and has not been effective. Lifestlye changes, phentermine were ineffective in the past. She is currently on Wegovy 1 mg weekly and states that she just started the increased dosage. She has lost about 8 lb so far. Migraine: headaches are stable. on estrogen, progesterone, testosterone hormone therapy through integrative medicine. Uro: She has a history of nonobstructive bilateral nephrolithiasis. This was performed in 02/27/2024. She follows with [facility] Preventive Colonoscopy 04/20/2021: 2 tubular adenomas Pap 2019 Mammo 07/04/2024- [facility] Medical History (Updated 10/23/24 @ 15:22 by Shayy Washburn MD) Vitamin D deficiency Tubular adenoma of colon Migraine Microscopic hematuria Kidney stone Hypercholesterolemia Hearing loss Allergic rhinitis Surgical History (Updated 03/05/24 @ 08:37 by Micheline Cardozo CMA) History of cholecystectomy Family History (Updated 03/05/24 @ 08:55 by Micheline Cardozo CMA) Mother Hypercholesterolemia Father Bladder cancer Social History (Updated 03/05/24 @ 08:56 by Micheline Cardozo CMA) Household Members: Spouse and Children Housing: House Are you a primary morning caregiver to a significant other at home: No Do you presently have visiting nurse or other home services: No Alcohol intake: current Alcohol intake frequency: a few times a week Patient Tobacco Use Status: Never used Tobacco e-Cigarette/Vaping Use: Never Used service: No Current occupational status: employed 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 Cognitive needs: No Hearing needs: No Vision needs: No Questionnaire PHQ-9 Over the last 2 weeks, how often have you been bothered by any of the following problems? 1. Little interest or pleasure in doing things: not at all 2. Feeling down, depressed, or hopeless: not at all 3. Trouble falling or staying asleep, or sleeping too much: not at all 4. Feeling tired or having little energy: not at all 5. Poor appetite or overeating: not at all 6. Feeling bad about yourself - or that you are a failure or have let yourself or your family down: not at all 7. Trouble concentrating on things, such as reading the newspaper or watching television: not at all 8. Moving or speaking so slowly that other people could have noticed. Or the opposite - being so fidgety or restless that you have been moving around a lot more than usual: not at all 9. Thoughts that you would be better off or of hurting yourself in some way: not at all Total score: 0 Depression Screening Interpretation: Negative Depression Screening Done: Yes 31127 - PHQ-9 Billing: Yes Source: Developed by Drs. Elie Soto, Disha DeL eon, John Lorenzo and colleagues, with an educational mildred from [employer] Thrive Questionnaire Date Thrive assessed: 09/23/24 I am a: Patient What is your living situation today?: I have a steady place to live Within the past 12 months, did the food you bought not last and you didn't have the money to get more?: Never true Within the past 12 months, did you worry whether your food would run out before you got money to buy more?: Never true Do you have trouble paying for medicines?: No Do you have trouble getting transportation to medical appointments?: No Do you have trouble paying your heating and electricity bill?: No Do you have trouble taking care of your child, family member or friend?: No Do you have trouble with day-to-day activities such as bathing, preparing meals, shopping, managing finances, etc.?: No Are you currently unemployed and looking for a job?: No Are you interested in more education?: No Please select the resources that you would like help with: None Currently or been in a relationship where the following occur: No concerns reported THRIVE Score: 0 AUDIT C Alcohol Use Questionnaire (AUDIT-C) 1. How often do you have a drink containing alcohol?: 2-4 times a month 2. How many drinks containing alcohol do you have on a typical day when you are drinking?: 1 or 2 3. How often do you have six or more drinks on one occasion?: Never Total Score: 2 PARISA-7 AMB Questionnaire PARISA-7 Date PARISA - 7 assessed: 03/05/24 Feeling nervous, anxious, or on edge: 0 = Not at all Not being able to stop or control worryin = Not at all Worrying too much about different things: 0 = Not at all Trouble relaxin = Not at all Being so restless that it is hard to sit still: 0 = Not at all Becoming easily annoyed or irritable: 0 = Not at all Feeling afraid as if something awful might happen: 0 = Not at all Total PARISA-7 score (0-4 normal; 5-9 mild; 10-14 moderate; 15-21 severe): 0 Source: Developed by Drs. Elie Soto, Disha De Leon, John Lorenzo and colleagues, with an educational mildred from [employer] ([employer]). Physical exam (Primary Care) Tobacco/Smoking Status: Tobacco use Status Tobacco use date assessed 09/30/24 09/30/24 10:28 Patient Tobacco Use Status Never used Tobacco 09/30/24 10:28 e-Cigarette/Vaping Use Never Used 09/30/24 10:28 PHQ-9: PHQ-9 Score PHQ-9: Total score 0 09/30/24 10:28 Depression Screening Interpretation: Negative Thrive Assessment: Date of Thrive Assessment Date Thrive assessed 09/23/24 09/30/24 10:28 Currently or been in a relationship where the following occur: No concerns reported Const Orientation/consciousness: patient oriented x3 HENMT Ears: hearing grossly normal bilaterally and TM's normal bilaterally General nose exam: No nasal polyps present Face and sinus: Yes sinuses nontender Mouth: Normal oral and palatal mucosa present Eyes Pupils: Equal, round and reactive pupils present EOM: EOMs intact bilaterally Neck Neck: Yes full ROM and Yes no lymphadenopathy Thyroid: Thyroid normal Chest Chest palpation & inspection: normal inspection of the chest Resp Auscultation: clear to auscultation bilaterally Cardio Rate: regular rate Rhythm: regular rhythm Heart sounds: S1 normal heart sound present and S2 normal heart sound present Peripheral pulses: Peripheral pulses 2+ throughout GI Other: Soft, nontender Auscultation: normal bowel sounds Rectal Exam - Female: deferred General: Yes no CVA tenderness Back/Spine/Pelvis Other: Nontender Back: no CVA tenderness Skin General skin exam: no rashes or lesions noted Neuro General: patient oriented x3, gait normal, CN's II-XI intact bilaterally and deep tendon reflexes 2+ bilaterally Cranial nerves: Yes Equal, round and reactive pupils present Motor exam (neuro): 5/5 motor strength present throughout Sensory Exam: double simultaneous stimulation for sensation normal Coordination: [id number] test normal and Romberg test negative Extrem General: Yes normal to inspection and Yes full ROM Psych Affect: normal affect Attitude: cooperative Thought process: Normal thought process present Thought content: Normal thought content present Insight: Good insight present (Psych) Judgement: Good judgement present (Psych) Coding Level of Care Code Est Pt Prev Care 40-64y(00538) Diagnoses Routine general medical examination at a health care facility Z00.00 Hypercholesterolemia E78.00 Additional Codes PHQ-9 - 85726 - PHQ-9 Billing: Yes ([id number]) Assessment & Plan Assessment & Plan (1) Routine general medical examination at a health care facility: Code(s): Z00.00 - Encounter for general adult medical examination without abnormal findings Plan: reviewed labs ordered (2) Hypercholesterolemia: Code(s): E78.00 - Pure hypercholesterolemia, unspecified Category: Medical Plan: will check lipids Orders: Orders Complete Blood Count Auto Diff Today E78.00 - Pure hypercholesterolemia, unspecified, Z00.00 - Encounter for general adult medical examination without abnormal findings Lipid Panel Today E78.00 - Pure hypercholesterolemia, unspecified, Z00.00 - Encounter for general adult medical examination without abnormal findings TSH reflex Free T4 Today E78.00 - Pure hypercholesterolemia, unspecified, Z00.00 - Encounter for general adult medical examination without abnormal findings Comprehensive [place]. Panel Fast Today E78.00 - Pure hypercholesterolemia, unspecified, Z00.00 - Encounter for general adult medical examination without abnormal findings
[2024-09-30 10:41] VITALS: BP 96/62; PULSE 77; O2SAT 96
== END 2024-09-30 11:01 | disposition home or self-care (01) ==
LOC: HO.HMCFM 10:14
PROVIDERS: PCP Internal Medicine; Visit Provider Physician Assistant
DX: Z00.00 Encounter for general adult medical examination without abnormal findings (principal); E78.00 Pure hypercholesterolemia, unspecified

== ENCOUNTER → 2024-09-30 10:14 | Outpatient (BNVA) | payer BC, SELFPAY | PROVIDERS: PCP Internal Medicine; Visit Provider Physician Assistant | DX: Z00.00 Encounter for general adult medical examination without abnormal findings (principal); E78.00 Pure hypercholesterolemia, unspecified | CPT/HCPCS: 96127 ==

== ENCOUNTER 2024-09-30 11:13 | Outpatient (REF) | payer BC, SELFPAY ==
[2024-09-30 14:14] LABS: MANUAL DIFF FLAG NO
[2024-09-30 14:22] LABS: Basophils Percent Auto 0.8 % (0-2); Eosinophils Absolute Auto 0.1 X10*3/uL (0.0-0.4); Eosinophils Percent Auto 2.9 % (0-4); Hemoglobin 14.5 g/dl (12.0-16.0); Imm Gran Abs Auto 0.01 X10*3/uL (0.00-0.03); Imm Gran Pct Auto 0.2 % (0.0-0.4); Lymphocytes Absolute Auto 1.6 X10*3/uL (1.2-4.9); Lymphocytes Percent Auto 32.4 % (20-40); Mean Corpuscular Hemoglobin 30.1 pg (27.0-33.0); Mean Corpuscular Volume 91.5 fL (80.0-98.0); Mean Platelet Volume 10.4 fL (9.4-12.3); Monocytes Absolute Auto 0.3 X10*3/uL (0.1-1.2); Monocytes Percent Auto 6.7 % (2-11); Neutrophils Absolute Auto 2.7 x10*3/uL (2.0-8.3); Platelet Count 349 X10*3/uL (160-400); Red Blood Count 4.81 X10*6/uL (4.20-5.50); Red Cell Distribution Width 13.1 % (11.0-16.0); White Blood Count 4.8 X10*3/uL (4.8-10.8)
[2024-09-30 14:39] LABS: Alanine Aminotransferase 29 U/L (0-31); Albumin Level 4.3 g/dL (3.5-5.0); Alkaline Phosphatase 73 U/L (39-117); Anion Gap 9 (12-20); Aspartate Amino Transferase 26 U/L (5-31); Bilirubin Total 0.5 mg/dL (0.0-1.0); Blood Urea Nitrogen 16 mg/dL (9-16); Calcium 9.5 mg/dL (8.4-10.2); Carbon Dioxide 28 mmol/L (22-29); Chloride 109 mmol/L (96-108); Cholesterol 232 mg/dL (<200); Estimated Glomerular Filt Rate > 60; Glucose Fasting 88 mg/dL (60-99); HDL Cholesterol 54 mg/dL (>40); LDL Cholesterol Calculated 164 mg/dL (<100); Potassium 4.3 mmol/L (3.3-5.1); Sodium 142 mmol/L (135-145); Total Protein 7.2 g/dL (6.5-8.0); Triglycerides 74 mg/dL (<150)
[2024-09-30 14:57] LABS: TSH reflex Free T4 1.25 uIU/mL (0.32-4.0)
== END 2024-09-30 11:14 | disposition home or self-care (01) ==
LOC: HO.WFDLDS 11:13
PROVIDERS: Visit Provider Physician Assistant
DX: Z00.00 Encounter for general adult medical examination without abnormal findings (principal); E78.00 Pure hypercholesterolemia, unspecified
CPT/HCPCS: 36415; 80053; 80061; 84443; 85025

== ENCOUNTER 2025-06-03 10:53 | Outpatient (REF) | payer BC, SELFPAY ==
[2025-06-03 17:09] LABS: MANUAL DIFF FLAG NO
[2025-06-03 17:15] LABS: Hematocrit 44.6 % (37.0-47.0); Hemoglobin 14.8 g/dl (12.0-16.0); Imm Gran Abs Auto 0.01 X10*3/uL (0.00-0.03); Imm Gran Pct Auto 0.2 % (0.0-0.4); Lymphocytes Absolute Auto 2.0 X10*3/uL (1.2-4.9); Mean Corpuscular HGB Conc 33.2 g/dl (31.0-35.0); Mean Corpuscular Hemoglobin 30.6 pg (27.0-33.0); Mean Corpuscular Volume 92.3 fL (80.0-98.0); NRBC Abs Auto 0.000 X10*3/uL (0.0-0.012); NRBC Pct Auto 0.0 /100WBC (0.0-0.2); Platelet Count 302 X10*3/uL (160-400); Red Blood Count 4.83 X10*6/uL (4.20-5.50); White Blood Count 5.9 X10*3/uL (4.8-10.8)
[2025-06-03 17:53] LABS: Alanine Aminotransferase 98 U/L (0-31); Albumin Level 4.4 g/dL (3.5-5.0); Alkaline Phosphatase 127 U/L (39-117); Anion Gap 11 (12-20); Aspartate Amino Transferase 48 U/L (5-31); Blood Urea Nitrogen 19 mg/dL (9-16); Calcium 9.2 mg/dL (8.4-10.2); Carbon Dioxide 28 mmol/L (22-29); Chloride 107 mmol/L (96-108); Cholesterol 228 mg/dL (<200); Estimated Glomerular Filt Rate > 60; HDL Cholesterol 57 mg/dL (>40); Potassium 4.5 mmol/L (3.3-5.1); Sodium 141 mmol/L (135-145); Total Protein 7.1 g/dL (6.5-8.0); Triglycerides 80 mg/dL (<150)
[2025-06-06 23:49] LABS: VITAMIN D (1,25 OH) D3 21 pg/mL; Vit D (1,25-Dihydroxy) Total 21 pg/mL (18-72); Vitamin D (1,25 OH) D2 <8 pg/mL
== END 2025-06-03 10:54 | disposition home or self-care (01) ==
LOC: HO.WFDLDS 10:53
PROVIDERS: Visit Provider Internal Medicine
DX: E78.00 Pure hypercholesterolemia, unspecified (principal); E55.9 Vitamin D deficiency, unspecified; R63.5 Abnormal weight gain; R35.89 Other polyuria; Z13.1 Encounter for screening for diabetes mellitus
CPT/HCPCS: 36415; 80053; 80061; 82652; 83036; 85025